=== PATIENT | female | born 1970 | race Caucasian/White ===

== ENCOUNTER 2019-08-03 11:17 | Emergency (ER) | payer OTHER ==
[~2019-08-03] VITALS: Ht 180.3 cm; Wt 90.7 kg
[2019-08-03 11:25] VITALS: Ht 180.3 cm; Wt 90.7 kg
[2019-08-03 12:23] LABS: BASOPHIL % 0.7 % (0-2); PLATELET COUNT 132 x10^3mcL (130-400)
[2019-08-03 12:25] LABS: RED CELL DISTRIBUTION WIDTH 15.2 % (11.5-14.5)
[2019-08-03 12:49] LABS: CARBON DIOXIDE 21.6 mmol/L (21-32); CREATININE SERUM 1.2 mg/dL (0.6-1.0); POTASSIUM SERUM 4.2 mmol/L (3.5-5.1)
[2019-08-03 12:50] LABS: ALBUMIN 3.9 g/dL (3.4-5.0); BILIRUBIN TOTAL 0.51 mg/dL (0.20-1.00); CALCIUM 8.8 mg/dL (8.5-10.1); TOTAL PROTEIN, SERUM 7.9 g/dL (6.4-8.2); URIC ACID 4.9 mg/dL (2.6-6.0)
[2019-08-03 13:36] VITALS: BP 100/70
== END 2019-08-03 13:36 | disposition home or self-care (01) ==
LOC: ED 11:17
PROVIDERS: Emergency Medicine
DX: R55 Syncope and collapse (principal); R42 Dizziness and giddiness; R19.7 Diarrhea, unspecified; R50.9 Fever, unspecified; R05 Cough
CPT/HCPCS: 36415; J7030; Q0092